=== PATIENT | male | born 1965 | race Asian ===

== ENCOUNTER 2017-06-22 08:07 | Inpatient (IN) | payer BC, OTHER ==
[2017-06-22 08:25] LABS: PLATELET COUNT 183 10^3/uL (150-400)
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
[2017-06-22 08:33] LABS: INR 1.03 (0.83-1.16); PROTIME(PATIENT) 13.7 SEC (12.0-15.0)
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
[2017-06-22] MEDS ORDERED: HYDROmorphONE/DILAUDID 2 MG/ML INJ IVP ONE (09:02)
[2017-06-22] MEDS ORDERED: ONDANSETRON 4 MG/2 ML VIAL IVP ONE (09:03)
[2017-06-22] MEDS ORDERED: NOREPINEPHRINE/NS 500 ML IV SCH (10:30)
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
[2017-06-22] MEDS ORDERED: NALOXONE HCL 0.4 MG/ML INJ IVP PRN (11:01)
[2017-06-22] MEDS: NOREPINEPHRINE BITARTRATE 4 MG in NS 500 ML IV SCH ×2 (11:01→17:56)
[2017-06-22] MEDS ORDERED: LORazepam 2 MG/ML INJ IVP PRN (11:01)
[2017-06-22] MEDS ORDERED: ONDANSETRON DISINTEGRATING 4 MG TAB PO PRN (11:01)
[2017-06-22] MEDS ORDERED: HYDROmorphONE/DILAUDID 1 MG/ML INJ IVP PRN (11:15)
[2017-06-22] MEDS: LR 1,000 ML IV SCH ×2 (12:00→17:57)
--- NOTE | 2017-06-22 13:05 | POSTOPPROG ---
Post Op Note Date of Operation: 06/22/17 Surgeon: Chad Gonzalez Aircrewman: none Anesthesia: Local (Specify) (1% lidcaine plin) Pre-op Diagnosis: spinal cord central syndrome Post-op Diagnosis: same Procedure: L radial a line, L SCV TLC placement Findings: good placement/draw/flush/waveform Inf/Abcess present in the surg proc area at time of surgery?: No
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
[2017-06-22] MEDS: HYDROmorphone HCL/NS 0.5 MG/ML SYR IVP PRN ×2 (14:34→19:10)
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
[2017-06-22] MEDS: GABAPENTIN 300 MG CAP PO SCH ×2 (16:24→21:10)
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
[2017-06-22] MEDS ORDERED: FAMOTIDINE 20 MG/NACL 50 ML IV SCH (21:00)
[2017-06-23] MEDS: HYDROmorphone HCL/NS 0.5 MG/ML SYR IVP PRN (00:16)
[2017-06-23] MEDS: NOREPINEPHRINE BITARTRATE 4 MG in NS 500 ML IV SCH ×3 (02:58→21:25)
[2017-06-23] MEDS: LR 1,000 ML IV SCH ×3 (03:00→18:08)
[2017-06-23] MEDS ORDERED: BISACODYL 10 MG SUPP PR PRN (08:19)
[2017-06-23] MEDS ORDERED: LACTULOSE 20 GM/30 ML UDCUP PO PRN (08:19)
[2017-06-23] MEDS ORDERED: MAGNESIUM HYDROXIDE 30 ML UDCUP PO PRN (08:19)
[2017-06-23] MEDS ORDERED: POLYETHYLENE GLYCOL 3350 17 GM PKT PO PRN (08:19)
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
[2017-06-23] MEDS: FAMOTIDINE 20 MG TAB PO SCH ×2 (09:11→21:25)
[2017-06-23] MEDS: SENNOSIDES/DOCUSATE SODIUM TAB PO SCH ×2 (09:11→21:26)
[2017-06-23] MEDS: GABAPENTIN 300 MG CAP PO SCH ×3 (09:11→21:26)
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
[2017-06-24] MEDS: LR 1,000 ML IV SCH ×3 (01:18→16:46)
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
[2017-06-24] MEDS: ENOXAPARIN 40 MG/0.4 ML SYR SC SCH (09:11)
[2017-06-24] MEDS: FAMOTIDINE 20 MG TAB PO SCH ×2 (09:12→21:21)
[2017-06-24] MEDS: SENNOSIDES/DOCUSATE SODIUM TAB PO SCH ×2 (09:12→21:21)
[2017-06-24] MEDS: GABAPENTIN 300 MG CAP PO SCH ×3 (09:12→21:20)
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
--- NOTE | 2017-06-24 15:53 | ASMTCMCOM ---
CM Note CM Note Notes: Met with patient and his and they gave me phone numbers to call for getting a medical statement and instructions so patient can get his FMLA. Guerline Noble @ is supposed to be able to give us instructions on what information they need. Their office was closed today. 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 CM will try again tomorrow to get in touch with them . Mohini has not called back today. Spoke with Idania Guillen from [facility] Inpatient Rehab and she plans to meet with patient and his to talk about their program and make recommendations. Spoke with ROBINSON Arreaga, and she is recommending inpatient rehab for patient at this time. CM will follow. Date Signed: 06/24/2017 03:52 PM Electronically Signed By:Ludivina Santo LCSW
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
--- NOTE | 2017-06-24 18:47 | SOAPPROG ---
Downtime Inpatient Late Entry SOAP Note: Mr. Burris reported mild left sided chest pain with inspiration. Previous CXR after line placement was neg. He does not appear in respiratory distress, though breath sounds are diminished at both bases O2 sat 96% RA P 68 will check repeat CXR to look for delayed pneumo. Cam Mckinney MD, FACS
[2017-06-25] MEDS: LR 1,000 ML IV SCH (01:03)
[2017-06-25] MEDS: NOREPINEPHRINE BITARTRATE 4 MG in NS 500 ML IV SCH (05:42)
[2017-06-25] MEDS: ENOXAPARIN 40 MG/0.4 ML SYR SC SCH (07:57)
[2017-06-25] MEDS: GABAPENTIN 300 MG CAP PO SCH ×3 (07:57→23:10)
[2017-06-25] MEDS: FAMOTIDINE 20 MG TAB PO SCH ×2 (07:57→23:10)
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
[2017-06-25] MEDS: SENNOSIDES/DOCUSATE SODIUM TAB PO SCH ×2 (09:38→23:10)
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
[2017-06-26] MEDS: HYDROmorphone HCL/NS 0.5 MG/ML SYR IVP PRN (02:03)
[2017-06-26 05:11] LABS: PLATELET COUNT 161 10^3/uL (150-400)
[2017-06-26] MEDS: ENOXAPARIN 40 MG/0.4 ML SYR SC SCH (08:22)
[2017-06-26] MEDS: FAMOTIDINE 20 MG TAB PO SCH ×2 (08:23→20:18)
[2017-06-26] MEDS: SENNOSIDES/DOCUSATE SODIUM TAB PO SCH ×2 (08:23→20:18)
[2017-06-26] MEDS: GABAPENTIN 300 MG CAP PO SCH ×3 (08:23→21:22)
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
[2017-06-26] MEDS ORDERED: HYDROCODONE/APAP 5/325 TAB PO PRN (08:30)
[2017-06-26] MEDS ORDERED: METHOCARBAMOL 750 MG TAB PO PRN (08:30)
[2017-06-26] MEDS ORDERED: ENOXAPARIN 40 MG/0.4 ML SYR SC ONE (09:30)
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
[2017-06-26] MEDS ORDERED: POTASSIUM CL 20 MEQ/15 ML UDCUP PO ONE ×2 (10:15→13:15)
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
--- NOTE | 2017-06-26 15:45 | ASMTCMCOM ---
CM Note CM Note Notes: Conference call in patient's behalf with Guerline Noble ([phone]) and [place] Specialist Pat Carvalho ([phone]) regarding patient's short term disability. Patient's claim was started, claim #[id number]. Guerline Noble needs some medical information and will fax us their release of information to get the patient to sign.Pat is the main contact as she is Human Resources for [employer]'s company. She has requested we coordinate through her.Claim # was given to the patient so he has the information as well. Dr. Mcghee met with patient and he has been determined eligible for inpatient rehab. Spoke with Idania today who states she will call for auth on Thursday as it looks like he will be ready for d/c then. There is a new development of a DVT that was found last night and patient needs to remain in ICU for now. D/C plan is for patient to go to inpatient rehab when he is ready for d/c. CM will follow. Date Signed: 06/26/2017 03:45 PM Electronically Signed By:Ludivina Santo LCSW
[2017-06-26] MEDS: ENOXAPARIN 80 MG/0.8 ML SYR SC SCH (20:18)
[2017-06-27] MEDS: HYDROmorphone HCL/NS 0.5 MG/ML SYR IVP PRN (00:25)
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
[2017-06-27] MEDS: FAMOTIDINE 20 MG TAB PO SCH ×2 (08:08→22:01)
[2017-06-27] MEDS: SENNOSIDES/DOCUSATE SODIUM TAB PO SCH ×2 (08:08→22:03)
[2017-06-27] MEDS: GABAPENTIN 300 MG CAP PO SCH ×3 (08:08→22:00)
[2017-06-27] MEDS: ENOXAPARIN 80 MG/0.8 ML SYR SC SCH ×2 (08:08→22:01)
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
[2017-06-27] MEDS ORDERED: PROTOCOL POTASSIUM 1 DOSE MISC PRN (10:58)
[2017-06-27] MEDS ORDERED: POTASSIUM CL 10 MEQ TAB PO ONE (11:00)
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
[2017-06-27] MEDS: NOREPINEPHRINE BITARTRATE 4 MG in NS 500 ML IV SCH (22:07)
[2017-06-28] MEDS: HYDROmorphone HCL/NS 0.5 MG/ML SYR IVP PRN ×2 (00:02→22:42)
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
[2017-06-28] MEDS: FAMOTIDINE 20 MG TAB PO SCH ×2 (09:18→21:57)
[2017-06-28] MEDS: GABAPENTIN 300 MG CAP PO SCH ×3 (09:18→21:57)
[2017-06-28] MEDS: ENOXAPARIN 80 MG/0.8 ML SYR SC SCH ×2 (09:19→21:57)
[2017-06-28] MEDS: SENNOSIDES/DOCUSATE SODIUM TAB PO SCH ×2 (09:21→21:57)
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
[2017-06-28] MEDS: NOREPINEPHRINE BITARTRATE 4 MG in NS 500 ML IV SCH (13:26)
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
[2017-06-29] MEDS: GABAPENTIN 300 MG CAP PO SCH ×3 (08:24→21:30)
[2017-06-29] MEDS: SENNOSIDES/DOCUSATE SODIUM TAB PO SCH ×2 (08:25→21:30)
[2017-06-29] MEDS: ENOXAPARIN 80 MG/0.8 ML SYR SC SCH ×2 (08:25→21:30)
[2017-06-29] MEDS: FAMOTIDINE 20 MG TAB PO SCH ×2 (08:25→21:30)
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
--- NOTE | 2017-06-29 11:58 | CPEKG ---
Heart Rate: 59 RR Interval: 1017 P-R Interval: 176 QRSD Interval: 92 QT Interval: 448 QTC Interval: 444 P Tolstoy: 71 QRS Tolstoy: 50 T Wave Tolstoy: 11 EKG Severity - ABNORMAL ECG - EKG Impression: SINUS RHYTHM EKG Impression: LEFT VENTRICULAR HYPERTROPHY Electronically Signed By: Nestor Grajeda 29-Jun-2017 12:40:00
[2017-06-29 12:49] LABS: CREATINE KINASE 93 IU/L (0-224)
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
--- NOTE | 2017-06-29 14:54 | ASMTCMCOM ---
CM Note CM Note Notes: Patient transferred to from ICU in anticipation of going to In-pt Rehab. Patient was having CP's so now having a cardiac work-up. In-pt Rehab informed. Date Signed: 06/29/2017 02:54 PM Electronically Signed By:Jaida Diez LCSW
[2017-06-29] MEDS ORDERED: WARFARIN SODIUM 7.5 MG TAB PO ONE (16:00)
[2017-06-30 05:47] LABS: INR 1.05 (0.83-1.16); PROTIME(PATIENT) 13.9 SEC (12.0-15.0)
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
[2017-06-30 08:02] VITALS: BP 97/63
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
[2017-06-30] MEDS: GABAPENTIN 300 MG CAP PO SCH (09:32)
[2017-06-30] MEDS: ENOXAPARIN 80 MG/0.8 ML SYR SC SCH (09:32)
[2017-06-30] MEDS: FAMOTIDINE 20 MG TAB PO SCH (09:32)
[2017-06-30] MEDS: SENNOSIDES/DOCUSATE SODIUM TAB PO SCH (10:12)
--- NOTE | 2017-06-30 12:11 | ASMTCMCOM ---
CM Note CM Note Notes: Pt medically stable for d/c to [facility] inpatient rehab. Pt requests Harinder cook scheduled for 1300 pt is aware of need for payment. Bowen to see pt at inpatient rehab. Orders to be obtained via [employer]. BRET Gardner to call report. Date Signed: 06/30/2017 12:10 PM Electronically Signed By:ADALBERTO Sultana
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
== END 2017-06-30 14:40 | DRG 52 ==
LOC: EDUNIT# → F2N 10:46 → F3N 06-29 10:45
PROVIDERS: ADMIT Surgery; ATTEND Surgery
PROC: 02HV33Z Insertion of Infusion Device into Superior Vena Cava, Percutaneous Approach (ICD-10-PCS; principal; 2017-06-22)
DX: S14.123A Central cord syndrome at C3 level of cervical spinal cord, initial encounter (principal); I26.99 Other pulmonary embolism without acute cor pulmonale; I82.442 Acute embolism and thrombosis of left tibial vein; S06.0X1A Concussion with loss of consciousness of 30 minutes or less, initial encounter; E87.6 Hypokalemia; S12.290A Other displaced fracture of third cervical vertebra, initial encounter for closed fracture; V13.0XXA Pedal cycle driver injured in collision with car, pick-up truck or van in nontraffic accident, initial encounter; K59.00 Constipation, unspecified; S14.0XXA Concussion and edema of cervical spinal cord, initial encounter
CPT/HCPCS: 82947-QW; 92507-GN; 92523-GN; 92526-GN; 92610-GN; 96374; 97110-GO; 97112-GO; 97112-GP; 97116-GP; 97163-GP; 97166-GO; 97530-GO; 97530-GP; 97535-GO; G0480; J1170; J1650; J2060; J2270; J2405; L0172

== ENCOUNTER 2017-06-30 12:49 | Inpatient (IN) | payer BC ==
[2017-06-30] MEDS ORDERED: BISACODYL 10 MG SUPP PR PRN (13:47)
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
--- NOTE | 2017-06-30 14:59 | PDOREHIP ---
Admission [facility] - Admission - 3 Day Assessment Period Admission Date/Day 1: 06/30/17 Day 2: 07/01/17 Day 3: 07/02/17 - Active Diagnoses Comorbidities and Co-existing Conditions at Admission: 93422. None of the Above - Skin Conditions Unhealed Pressure Ulcer (1 or more/Stage 1 or >)-Admission: 0. No
[2017-06-30] MEDS: GABAPENTIN 300 MG CAP PO SCH ×2 (15:50→21:08)
[2017-06-30] MEDS ORDERED: WARFARIN SODIUM 7.5 MG TAB PO ONE (16:00)
[2017-06-30] MEDS: FAMOTIDINE 20 MG TAB PO SCH (21:08)
[2017-06-30] MEDS: ENOXAPARIN 80 MG/0.8 ML SYR SC SCH (21:09)
[2017-07-01] MEDS: HYDROCODONE/APAP 5/325 TAB PO PRN ×2 (00:04→23:29)
[2017-07-01 08:30] LABS: INR 1.34 (0.83-1.16); PROTIME(PATIENT) 16.8 SEC (12.0-15.0)
[2017-07-01] MEDS: FAMOTIDINE 20 MG TAB PO SCH ×2 (09:02→20:47)
[2017-07-01] MEDS: ENOXAPARIN 80 MG/0.8 ML SYR SC SCH ×2 (09:02→20:47)
[2017-07-01] MEDS: GABAPENTIN 300 MG CAP PO SCH ×3 (09:02→20:47)
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
[2017-07-01] MEDS ORDERED: WARFARIN SODIUM 7.5 MG TAB PO ONE (16:00)
[2017-07-02] MEDS: GABAPENTIN 300 MG CAP PO SCH ×3 (08:22→21:00)
[2017-07-02] MEDS: FAMOTIDINE 20 MG TAB PO SCH ×2 (08:22→21:00)
[2017-07-02 08:33] LABS: INR 1.89 (0.83-1.16); PROTIME(PATIENT) 21.8 SEC (12.0-15.0)
[2017-07-02] MEDS: ENOXAPARIN 80 MG/0.8 ML SYR SC SCH ×2 (08:46→21:07)
[2017-07-02] MEDS: SENNOSIDES 1 TAB PO PRN ×2 (11:16→21:05)
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
[2017-07-02] MEDS ORDERED: WARFARIN SODIUM 5 MG TAB PO ONE (16:00)
[2017-07-03] MEDS: FAMOTIDINE 20 MG TAB PO SCH ×2 (08:47→21:02)
[2017-07-03] MEDS: GABAPENTIN 300 MG CAP PO SCH ×3 (08:47→21:02)
[2017-07-03] MEDS: ENOXAPARIN 80 MG/0.8 ML SYR SC SCH ×2 (08:48→21:02)
[2017-07-03 09:09] LABS: INR 2.06 (0.83-1.16); PROTIME(PATIENT) 23.3 SEC (12.0-15.0)
[2017-07-03] MEDS: BISACODYL 10 MG SUPP PR SCH (09:59)
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
[2017-07-03] MEDS: SENNOSIDES 1 TAB PO PRN (15:49)
[2017-07-03] MEDS ORDERED: WARFARIN SODIUM 5 MG TAB PO ONE (16:00)
[2017-07-04] MEDS: FAMOTIDINE 20 MG TAB PO SCH ×2 (08:07→21:04)
[2017-07-04] MEDS: GABAPENTIN 300 MG CAP PO SCH ×3 (08:07→21:03)
[2017-07-04] MEDS: SENNOSIDES 1 TAB PO PRN (08:07)
[2017-07-04 09:33] LABS: INR 2.15 (0.83-1.16)
[2017-07-04] MEDS: BISACODYL 10 MG SUPP PR SCH ×2 (10:13→18:39)
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
[2017-07-04] MEDS: ENOXAPARIN 80 MG/0.8 ML SYR SC SCH (10:26)
[2017-07-04] MEDS: POLYETHYLENE GLYCOL 3350 17 GM PKT PO SCH (10:35)
[2017-07-04] MEDS ORDERED: WARFARIN SODIUM 5 MG TAB PO ONE (16:00)
[2017-07-05] MEDS: POLYETHYLENE GLYCOL 3350 17 GM PKT PO SCH (08:15)
[2017-07-05] MEDS: GABAPENTIN 300 MG CAP PO SCH ×3 (08:15→21:24)
[2017-07-05] MEDS: FAMOTIDINE 20 MG TAB PO SCH ×2 (08:15→21:24)
[2017-07-05 09:22] LABS: INR 2.18 (0.83-1.16); PROTIME(PATIENT) 24.3 SEC (12.0-15.0)
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
[2017-07-05] MEDS ORDERED: WARFARIN SODIUM 5 MG TAB PO ONE (16:00)
[2017-07-06] MEDS: BISACODYL 10 MG SUPP PR SCH (05:37)
[2017-07-06] MEDS: SENNOSIDES 1 TAB PO PRN (05:37)
[2017-07-06] MEDS: GABAPENTIN 300 MG CAP PO SCH ×2 (08:49→17:06)
[2017-07-06] MEDS: FAMOTIDINE 20 MG TAB PO SCH (08:50)
[2017-07-06] MEDS: POLYETHYLENE GLYCOL 3350 17 GM PKT PO SCH (08:51)
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
--- NOTE | 2017-07-06 14:46 | PDOREHIP ---
Admission [facility] - Admission - 3 Day Assessment Period Admission Date/Day 1: 06/30/17 Day 2: 07/01/17 Day 3: 07/02/17 Discharge [facility] - Discharge - 3 Day Assessment Period 2 Days Prior to Anticipated Discharge Date: 07/05/17 1 Day Prior to Anticipated Discharge Date: 07/06/17 Anticipated Discharge Date: 07/07/17 - Discharge Skin Conditions Unhealed Pressure Ulcer (1 or more/Stage 1 or >)-Discharge: 0. No
[2017-07-06] MEDS ORDERED: WARFARIN SODIUM 5 MG TAB PO SCH (16:00)
[2017-07-06] MEDS ORDERED: WARFARIN SODIUM 5 MG TAB PO ONE ×2 (16:00)
[2017-07-06] MEDS ORDERED: GABAPENTIN 300 MG CAP PO PRN (16:12)
[2017-07-07 06:24] VITALS: BP 113/78
[2017-07-07 08:04] LABS: INR 2.19 (0.83-1.16); PROTIME(PATIENT) 24.4 SEC (12.0-15.0)
[2017-07-07] MEDS: POLYETHYLENE GLYCOL 3350 17 GM PKT PO SCH (08:31)
[2017-07-07] MEDS: BISACODYL 10 MG SUPP PR SCH (10:01)
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
[2017-07-07] MEDS ORDERED: WARFARIN SODIUM 5 MG TAB PO SCH (13:45)
== END 2017-07-07 13:56 | disposition home or self-care (01) | DRG 560 ==
LOC: BREH 12:49
PROVIDERS: ADMIT Internal Medicine; ATTEND Internal Medicine
PROC: F08Z2FZ Grooming/Personal Hygiene Treatment using Assistive, Adaptive, Supportive or Protective Equipment (ICD-10-PCS; principal; 2017-06-30)
PROC: F0636ZZ Communicative/Cognitive Integration Skills Treatment of Neurological System - Whole Body (ICD-10-PCS; principal; 2017-06-30)
PROC: F08Z3FZ Feeding/Eating Treatment using Assistive, Adaptive, Supportive or Protective Equipment (ICD-10-PCS; principal; 2017-06-30)
PROC: F07Z8FZ Transfer Training Treatment using Assistive, Adaptive, Supportive or Protective Equipment (ICD-10-PCS; principal; 2017-06-30)
PROC: F08Z1FZ Dressing Techniques Treatment using Assistive, Adaptive, Supportive or Protective Equipment (ICD-10-PCS; principal; 2017-06-30)
PROC: F07Z5FZ Bed Mobility Treatment using Assistive, Adaptive, Supportive or Protective Equipment (ICD-10-PCS; principal; 2017-06-30)
DX: S12.200D Unspecified displaced fracture of third cervical vertebra, subsequent encounter for fracture with routine healing (principal); S14.0XXD Concussion and edema of cervical spinal cord, subsequent encounter; R29.5 Transient paralysis; S06.0X9D Concussion with loss of consciousness of unspecified duration, subsequent encounter; S12.02 Unstable burst fracture of first cervical vertebra; S12.190D Other displaced fracture of second cervical vertebra, subsequent encounter for fracture with routine healing; S13.4XXD Sprain of ligaments of cervical spine, subsequent encounter; G62.9 Polyneuropathy, unspecified; M50.81 Other cervical disc disorders, high cervical region; M50.821 Other cervical disc disorders at C4-C5 level; M50.822 Other cervical disc disorders at C5-C6 level; Z86.711 Personal history of pulmonary embolism; Z86.718 Personal history of other venous thrombosis and embolism; V13.0XXD Pedal cycle driver injured in collision with car, pick-up truck or van in nontraffic accident, subsequent encounter; Y93.55 Activity, bike riding
CPT/HCPCS: 92507-GN; 92522-GN; 97110-GO; 97110-GP; 97112-GP; 97116-GP; 97140-GO; 97161-GP; 97166-GO; 97530-GO; 97530-GP; 97535-GO; G0515-GO; J1650

== ENCOUNTER → 2017-08-31 | Outpatient (CLI) | payer BC | LOC: FIMAGING 14:20 | PROVIDERS: ATTEND Neurological Surgery | DX: M50.01 Cervical disc disorder with myelopathy, high cervical region (principal) ==